=== PATIENT | female | born 1970 | race Caucasian/White ===

== ENCOUNTER 2017-09-07 22:26 | Emergency (ER) | payer OTHER ==
[~2017-09-07] VITALS: Ht 152.4 cm; Wt 63.6 kg
[2017-09-07 23:27] LABS: ALBUMIN 4.6 g/dL (3.2-4.8); CHLORIDE 105 mEq/L (99-109); POTASSIUM 3.9 mEq/L (3.7-5.4); SODIUM 142 mEq/L (136-147)
[2017-09-07 23:29] LABS: GLUCOSE 113 mg/dL (70-99)
[2017-09-07 23:30] LABS: TOTAL PROTEIN 6.9 g/dL (6.4-8.3)
[2017-09-07 23:31] LABS: TOTAL BILIRUBIN 0.8 mg/dL (0.0-1.0)
[2017-09-07 23:33] LABS: ALKALINE PHOSPHATASE 69 IU/L (3-129); CREATININE 0.8 mg/dL (0.6-1.3); GFR ESTIMATE (CALCULATED) > 59 mL/min/; HEMATOCRIT 34.5 % (36.0-46.0); HEMOGLOBIN 10.9 G/DL (11.9-15.5); MCHC 31.6 G/DL (30.0-36.0); MCV 72.8 FL (83-99); PLATELET COUNT 291 K/uL (156-360); RBC DIS.WIDTH-CV 15.7 % (11.8-14.6); RBC DIS.WIDTH-SD 41.2 % (39-53); RED BLOOD COUNT 4.74 M/uL (3.80-5.20); WHITE BLOOD COUNT 5.8 K/uL (4.1-10.2)
[2017-09-07 23:34] LABS: UREA NITROGEN (BUN) 14 mg/dL (9-23)
[2017-09-07 23:35] LABS: AST (GOT) 27 IU/L (2-34)
[2017-09-07 23:36] LABS: ALT (GPT) 26 IU/L (3-49)
[2017-09-08] MEDS ORDERED: REGLAN10 MG PO (00:22)
[2017-09-08] MEDS ORDERED: ZOFRAN ODT4 MG PO (00:22)
[2017-09-08 00:30] VITALS: BP 104/59
== END 2017-09-08 00:30 | disposition home or self-care (01) ==
LOC: EME 22:26
PROVIDERS: Nurse Practitioner Family
DX: G43.909 Migraine, unspecified, not intractable, without status migrainosus (principal); R11.2 Nausea with vomiting, unspecified
CPT/HCPCS: 70450; 80053; 85027; 99281; 99285; J1100; J1200; J1885; J2405; J2765; J7030